=== PATIENT | female | born 1970 | race Caucasian/White ===

== ENCOUNTER → 2021-01-18 | Outpatient (REF) | payer MEDICARE, MEDICAID ==
[2021-01-18 12:58] LABS: ALBUMIN 2.4 GM/DL (3.2-5.2); ALT/SGPT 64 U/L (12-78); BLOOD UREA NITROGEN 11 MG/DL (7-18); CALCIUM LEVEL 8.8 MG/DL (8.5-10.1); CARBON DIOXIDE LEVEL 30 MEQ/L (21-32); CHLORIDE LEVEL 106 MEQ/L (98-107); CHOLESTEROL LEVEL 117 MG/DL (<200); CHOLESTEROL RISK RATIO 5.086 (<5); CREATININE FOR GFR 0.57 MG/DL (0.55-1.30); FREE T4 1.17 NG/DL (0.76-1.46); GLOMERULAR FILTRATION RATE > 60.0 (>51); GLUCOSE, FASTING 90 MG/DL (70-100); HDL CHOLESTEROL 23 MG/DL (>40); LDL CHOLESTEROL 79 MG/DL (<100); NON-HDL-C 94 MG/DL; POTASSIUM SERUM 4.1 MEQ/L (3.5-5.1); SODIUM LEVEL 138 MEQ/L (136-145); TOTAL 25(OH) VITAMIN D 15.3 NG/ML (30.0-100.0); TOTAL PROTEIN 8.1 GM/DL (6.4-8.2); TRIGLYCERIDES LEVEL 75 MG/DL (<150)
== END ==
LOC: M PLALAB 09:53
PROVIDERS: ATTEND Nurse Practitioner Family
DX: E66.01 Morbid (severe) obesity due to excess calories (principal); F41.1 Generalized anxiety disorder

== ENCOUNTER → 2021-02-12 | Outpatient (CLI) | payer MEDICARE, MEDICAID ==
--- NOTE | 2021-02-12 10:29 | REP ---
INDICATION: 479.89 LEFT ELEV. COMPARISON: Abdomen/pelvis CT dated 04/14/2006. TECHNIQUE: Multiple sonographic images of the abdominal right upper quadrant FINDINGS: There is a calculus in the gallbladder neck measuring 1.7 x 2.0 x 0.8 cm. The gallbladder wall is thickened measuring up to 7.4 mm. There is no pericholecystic fluid. On the comparison CT there was a 1.9 cm gallbladder calculus. There was no gallbladder wall thickening. There is limited visibility of the liver. No hepatic masses or cysts are identified. The visualized hepatic parenchyma is otherwise unremarkable. The pancreas is obscured by bowel gas. The right kidney is normal size measuring 11.3 x 5.1 x 4.4 cm. There is no right renal solid or cystic mass. There is no right renal calculus or hydronephrosis. There is no intrahepatic or extrahepatic biliary duct dilatation. The common biliary duct measures 3.4 mm in diameter. IMPRESSION: Gallbladder calculus as described. Gallbladder wall thickening. This could represent gallbladder wall edema or fibrosis. No pericholecystic fluid. No biliary duct dilatation. Extremely technically limited study because of patient body habitus, interfering bowel gas and patient difficulty tolerating the examination because of pain. <Electronically signed by Chris Block > 02/12/21 1029
== END ==
LOC: M WHC 07:59
PROVIDERS: ATTEND Nurse Practitioner Family
DX: K80.20 Calculus of gallbladder without cholecystitis without obstruction (principal); R79.89 Other specified abnormal findings of blood chemistry

== ENCOUNTER → 2021-02-12 | Outpatient (REF) | payer MEDICARE, MEDICAID ==
[2021-02-12 11:29] LABS: ALBUMIN 2.2 GM/DL (3.2-5.2); ALT/SGPT 74 U/L (12-78); BILIRUBIN,DIRECT 1.1 MG/DL (0.0-0.2); BILIRUBIN,TOTAL 1.7 MG/DL (0.2-1.0); FERRITIN 270 NG/ML (8-252); IRON (FE) 172 UG/DL (50-170); PERCENT SATURATION 87.3 % (13.2-45.0); TOTAL IRON BINDING CAPACITY 197 UG/DL (250-450); TOTAL PROTEIN 7.8 GM/DL (6.4-8.2)
[2021-02-12 11:31] LABS: HEPATITIS B SURFACE ANTIGEN NEGATIVE (NEGATIVE)
[2021-02-12 12:00] LABS: HEPATITIS C VIRUS ABY INDEX < 0.0 INDEX (<0.8)
== END ==
LOC: M SFHCPLAZ 08:38
PROVIDERS: ATTEND Nurse Practitioner Family
DX: R79.89 Other specified abnormal findings of blood chemistry (principal)

== ENCOUNTER → 2021-04-02 | Outpatient (CLI) | payer MEDICARE, MEDICAID ==
[~2021-04-02] MED LIST: ADV250INH; ALBU8.5H; BENA25CA4 PO; FAMO1TAB11; FLUT1BLS5; LEXA1TAB; MONT10TA10; VITA100054 PO; VITA50005; VITA500C19 PO
--- NOTE | 2021-04-02 15:08 | ECGEPIP ---
[facility] Test Date: 2021-04-02 Pat Name: SYDNEY TIDWELL Department: Room: - Gender: Female Employment Program Representative: RANJEET : 1970 Requested By: Jermaine Stephen Order Number: [id number] Reading MD: Danny Trotter Measurements Intervals [place] Rate: 78 P: 20 DC: 146 QRS: 44 QRSD: 66 T: 45 QT: 368 QTc: 419 Interpretive Statements Normal sinus rhythm, Within normal limits. No prior ECG available for comparison at the time of interpretation. Electronically Signed on 04-02-2021 15:08:09 EDT by Danny Trotter
== END ==
LOC: M EKG 10:22
PROVIDERS: ATTEND Surgery
DX: Z01.818 Encounter for other preprocedural examination (principal)

== ENCOUNTER → 2021-04-04 | Outpatient (CLI) | payer MEDICARE, MEDICAID | LOC: M LABSMTC 09:32 | PROVIDERS: ATTEND Anesthesiology | DX: Z01.818 Encounter for other preprocedural examination (principal); Z11.52 Encounter for screening for COVID-19 ==

== ENCOUNTER 2021-04-09 08:33 | Day surgery (SDC) | payer MEDICARE, MEDICAID ==
[~2021-04-09] VITALS: Ht 157.5 cm; Wt 76.5 kg
[~2021-04-09 08:33] MED LIST changes: +AMPICILLIN SOD/SULBACTAM SOD 3 GM in D5W MINI-BAG PLUS 100 ML IV ONE; +CelecoXIB (CeleBREX) 100 MG CAP PO ONE; +LR 1,000 ML IV ONE
[2021-04-09] MEDS ORDERED: MIDAZOLAM INJ 2MG/2ML VIAL (J2250 PER 1MG) As Ordered ONE (08:49)
[2021-04-09] MEDS ORDERED: ROCURONIUM BROMIDE 50 MG/5 ML VIAL As Ordered ONE ×2 (08:49→11:21)
[2021-04-09] MEDS ORDERED: ONDANSETRON 4MG/2ML VIAL As Ordered ONE (08:49)
[2021-04-09] MEDS ORDERED: LIDOCAINE 2% 100MG/5ML SDV (FOR ANES.) As Ordered ONE (08:49)
[2021-04-09] MEDS ORDERED: dexameTHASONE 4 MG/ML 1ML VIAL (J1100 PER 1MG) As Ordered ONE (08:49)
[2021-04-09] MEDS ORDERED: propofoL 200 MG/20 ML VIAL As Ordered ONE (08:49)
[2021-04-09] MEDS ORDERED: LACRILUBE (AKWA TEARS) OPHTH OINT 3.5 GM As Ordered ONE (08:49)
[2021-04-09] MEDS ORDERED: ACETAMINOPHEN 1000MG 100ML IV BTL (OFIRMEV) (J0131 PER 10MG) As Ordered ONE (08:50)
[2021-04-09] MEDS ORDERED: fentaNYL 100 MCG/2 ML INJECTION (J3010) As Ordered ONE ×2 (08:50→12:33)
[2021-04-09] MEDS ORDERED: BUPIVACAINE HCL 0.25% 30ML VIAL As Ordered ONE (10:19)
[2021-04-09] MEDS ORDERED: LIDOCAINE 1% SDV 30ML VIAL As Ordered ONE (10:19)
[2021-04-09] MEDS ORDERED: SUGAMMADEX SODIUM 500 MG/5 ML VIAL (BRIDION) As Ordered ONE (11:18)
[2021-04-09] MEDS ORDERED: KETAMINE HCL 200 MG/20 ML VIAL As Ordered ONE ×2 (11:28→12:55)
[2021-04-09] MEDS ORDERED: ACETAMINOPHEN TAB 650MG DOSE (2X325MG) PO PRN (13:40)
[2021-04-09] MEDS ORDERED: diphenhydrAMINE 25MG CAP PO SCH (13:40)
[2021-04-09] MEDS ORDERED: LR 1,000 ML IV SCH ×2 (13:40→14:05)
[2021-04-09] MEDS ORDERED: NORCO, ANEXSIA 5/325MG TABLET (HYDROcodone/ACETAMINOPHEN) PO PRN ×2 (13:40)
[2021-04-09] MEDS ORDERED: ONDANSETRON 4MG/2ML VIAL IV PRN ×2 (13:40→14:05)
[2021-04-09] MEDS ORDERED: ALBUTEROL 90 MCG/ACT 8GM HFA INHALER INH PRN (13:40)
[2021-04-09] MEDS ORDERED: fentaNYL 100 MCG/2 ML INJECTION (J3010) IV PRN (14:05)
[2021-04-09] MEDS: KETOROLAC 30 MG/ML 1ML VIAL IV PRN (14:05)
[2021-04-09] MEDS ORDERED: oxyCODONE 5MG TAB PO PRN (14:05)
[2021-04-09] MEDS: HYDROMORPHONE HCL 0.5 MG/ 0.5 ML SYRINGE (J1170 PER 1) IV PRN ×2 (14:13→14:20)
[2021-04-09 15:32] VITALS: BP 130/75
[2021-04-09 16:00] VITALS: BP 128/68
[2021-04-09 16:30] VITALS: BP 133/70
[2021-04-09 17:30] VITALS: BP 136/82
[2021-04-09 18:30] VITALS: BP 127/71
[2021-04-09] MEDS: ADVAIR HFA 115/21MCG INHALER INH SCH (19:32)
[2021-04-09 19:40] VITALS: BP 136/71
[2021-04-09] MEDS: SENOKOT S TAB PO SCH (20:45)
[2021-04-09] MEDS ORDERED: MONTELUKAST 10 MG TAB PO SCH (21:00)
[2021-04-09] MEDS ORDERED: FAMOTIDINE 20 MG TAB PO SCH (21:00)
[2021-04-09] MEDS ORDERED: ESCITALOPRAM OXALATE 10 MG TAB (LEXAPRO) PO SCH (21:00)
[2021-04-10] VITALS: BP 117/55
--- NOTE | 2021-04-10 03:25 | ROOPDOC ---
[facility] Report Of Operation Report of Operation DATE OF PROCEDURE: 04/09/21 PREPROCEDURE DIAGNOSES: Cholelithiasis. POSTPROCEDURE DIAGNOSES: Cholelithiasis, chronic cholecystitis, cirrhosis. PROCEDURE: Robotic Assisted Laparoscopic Cholecystectomy with ICG/Firefly for biliary tract identification. SURGEON: Celestine Monroy MD [employer]: ANESTHESIA: General Endotracheal Anesthesia. ESTIMATED BLOOD LOSS: Approximately 100 mL. COMPLICATIONS: cosntant oozing at the liver bed due to cirrhosis but controlled at the end of the procedure. REMARKS: 51 F complaining of intermittent right upper quadrant pain related to gallstones. PROCEDURE NOTE: polycystic, enlarged liver, which was stiff and nodular consistent with cirrhosis, tensely distended and chronically thickened gallbladder with a large stone at the neck.. DESCRIPTION OF PROCEDURE: .Patient was given a dose Unasyn 3 g IV preoperatively for prophylaxis. She was given a dose of ICG 2.5 mg IV with 10 mL NS flush 45 minutes prior to the procedure. She was brought to the operating room, laid supine on the table, compression boots placed for DVT prophylaxisusual sterile fashion. We paused for a surgical timeout using both pre-incision safety checklist to verify correct p atient, procedure site and additional clinical information prior to beginning the procedure. Entry to the abdomen done through a small incision at the left upper quadrant area. A Veress needle is inserted on a controlled fashion. CO2 insufflation started to pressure 15 mmHg. An 8 mm optical trocar was then placed under direct vision of laparoscope just to the right of the umbilicus. The insertion site was inspected for injury and none was found. The veress needle insertion is inspected and also no injury found. The veress needle was then removed. An initial laparoscopic examination was noted that she has enlarged and nodular liver. The gallbladder is enlarge protruding out of the edge of the liver and appears thickened. Patient was then positioned on a reverse trendelenburg position with her right side tilted up to further expose the gallbladder and gallbladder fossa and retract the bowels away from the area. Under direct vision The 3 working ports were placed transversely along the line of the firts optical port. Under laparoscopic guidance, the right lateral abdominal wall area at the transversus abdominis plane was infiltrated with local anesthesia. The da Staci Xi robotic tower was then maneuvered in place, the trochars were docked onto the robotic arms, the camera and instruments placed and positioned inside the abdomen. I then and scrubbed in to control of the robotic camera and instruments at the surgeon's console Her gallbladder is located/embedded in a more intrahepatic position. The gallbladder is tensely distended. It was difficult to elevate the fundus so I decided to go on a fundus down approach. The fundus of the gallbladder was retracted inferiorly and the peritoneum overlying the attachment of the posterior wall of the gallbladder was opened up. I then counter retracted the liver and proceeded going posteriorly staying close to the wall of the gallbladder. This was extended laterally and medially up to the mid gallbladder. At this point I have better purchase on the fundus of the gallbladder..The fundus of the gallbladder was grasped and the gallbladder was elevated superiorly exposing the neck of the gallbladder. Gallbladder wall is mildly and chronically thickened without any sign of any acute inflammation. The peritoneum overlying the area was opened up and dissected free both anteriorly and posteriorly to help with retraction of the gallbladder. The hepatocystic triangle was approached and dissected using a forced bipolar instrument and robotic hook cautery. The neck of the gallbladder and the course of the cystic duct as well as the bile duct was adequately visualized with aid of firefly and ICG. The cystic duct was identified coming off from the neck gallbladder this was circumferentially dissected. We continued posterior dissection proximally at the neck of the gallbladder until a critical view of safety was achieved whereby only the previously identified duct and artery coursing through the neck the gallbladder. I switched views with firefly to determine and visualized the course of the cystic duct, likewise the common bile duct. Photodocumentation was done of the critical view of safety. The cystic artery was then divided in between the previously placed [place] clips. After again checking her anatomy and verifying that the previously identified cystic duct with firefly view, this was also clipped 3 times and divided (2 hemoclips downstream and one Hemoclip upstream). The rest of the gallbladder was then dissected free of the gallbladder bed using Bovie cautery. The gallbladder was detached from the liver plate intact, and placed into an Endobag. I scrubbed back in. The gallbladder was extracted from the left upper quadrant port site with blunt enlargement of the trocar site using Nella forceps. The fascial opening at the left upper quadrant was closed with Jimi- Sienna device using an 0 Vicryl stitch. I left a 19 svitlana drain to the liver bed to monitor for bleeding.The abdomen was deflated all ports were removed. The umbilical fascial defect repaired with 0 Vicryl in a mattress fashion. Rest of the skin incisions closed with 4-0 Monocryl in subcuticular fashion. Dermabond was used to cover the port site incisions Patient was awakened, extubated and brought to recovery room stable. CELESTINE MONROY MD April 10, 2021 03:25
[2021-04-10] MEDS: KETOROLAC 30 MG/ML 1ML VIAL IV PRN ×2 (05:00→12:47)
[2021-04-10 06:57] LABS: BASO % 0.1 % (0.0-1.0); HEMATOCRIT 37.8 % (36.0-47.0); HEMOGLOBIN 12.4 g/dl (12.0-15.5); LYMPH # 0.5 10^3/uL (1.5-5.0); LYMPH % 6.2 % (24.0-44.0); MEAN CORPUSCULAR HGB CONC 32.8 g/dl (32.0-36.5); MEAN CORPUSCULAR VOLUME 103.6 fl (80.0-96.0); MONO # 0.4 10^3/uL (0.0-0.8); MONO % 4.3 % (2.0-8.0); NEUTROPHILS # 7.2 10^3/uL (1.5-8.5); NEUTROPHILS % 88.8 % (36.0-66.0); PLATELET COUNT, AUTOMATED 123 10^3/uL (150-450); RED BLOOD COUNT 3.65 10^6/uL (4.00-5.40); WHITE BLOOD COUNT 8.1 10^3/uL (4.0-10.0)
[2021-04-10] MEDS: ADVAIR HFA 115/21MCG INHALER INH SCH (07:20)
[2021-04-10 07:22] LABS: ALT/SGPT 88 U/L (12-78); BILIRUBIN,TOTAL 2.1 MG/DL (0.2-1.0); BLOOD UREA NITROGEN 14 MG/DL (7-18); CALCIUM LEVEL 7.6 MG/DL (8.5-10.1); CARBON DIOXIDE LEVEL 28 MEQ/L (21-32); CHLORIDE LEVEL 105 MEQ/L (98-107); CREATININE FOR GFR 0.85 MG/DL (0.55-1.30); GLOMERULAR FILTRATION RATE > 60.0 (>51); GLUCOSE, FASTING 194 MG/DL (70-100); POTASSIUM SERUM 4.1 MEQ/L (3.5-5.1); SODIUM LEVEL 138 MEQ/L (136-145); TOTAL PROTEIN 7.4 GM/DL (6.4-8.2)
[2021-04-10 08:00] VITALS: BP 132/69
[2021-04-10] MEDS: SENOKOT S TAB PO SCH (08:29)
[2021-04-10] MEDS ORDERED: PANTOPRAZOLE 40MG VIAL (C9113 PER 1) IV SCH (09:00)
[2021-04-10 12:00] VITALS: BP 156/86
[2021-04-10 14:40] VITALS: BP 122/73
--- NOTE | 2021-04-10 14:58 | IPNPDOC ---
Text Note Date of Service The patient was seen on 04/10/21. NOTE Patient is POD1 RA Lap Cholecystectomy for chronic cholecystitis. Intraoperat ively noted to have cirrhoisis, polycystic liver. I kept her overnight for monitoring. I left a drain for monitoring for bleeding. She looks to be doing well. Reports some heartburn type discomfort. VS stable looks comfortable, stable on her foot, ambulating independentl anicteric sclerae abdomen: obese, soft, nondistended, nontender. 4 port sites with glue, one of them have the drain, looks more like the leftover irrigation fluid, nonbilious not bloody labs reviewed baseline level ast/alt/bilirubin Plan ok to go home I discussed with her intraoperative findings of cirrhosis follow up in 2 weeks VS,Regina, I+O VSRegina, I+O Laboratory Tests 04/10/21 06:25 Vital Signs Date Time Temp Pulse Resp B/P (MAP) Pulse Ox O2 Delivery O2 Flow Rate FiO2 04/10/21 12:00 99.2 80 18 156/86 (109) 98 Room Air 04/09/21 13:47 10.0 l I&O- Last 24 Hours up to 6 AM 04/10/21 06:00 Intake Total 3235 ml Output Total 950 ml Balance 2285 ml CHARITO GILLETTE MD April 10, 2021 14:58
[2021-04-10 20:02] VITALS: BP 132/77
== END 2021-04-10 20:45 | disposition home or self-care (01) ==
LOC: M SDC 08:33 → M PED 15:18 → M SDC 04-10 20:45
PROVIDERS: ATTEND Surgery
DX: K80.10 Calculus of gallbladder with chronic cholecystitis without obstruction (principal); Q44.6 Cystic disease of liver; R94.5 Abnormal results of liver function studies; K74.60 Unspecified cirrhosis of liver; E66.01 Morbid (severe) obesity due to excess calories; Z68.30 Body mass index [BMI] 30.0-30.9, adult; F41.9 Anxiety disorder, unspecified; F32.9 Major depressive disorder, single episode, unspecified; K21.9 Gastro-esophageal reflux disease without esophagitis; M19.90 Unspecified osteoarthritis, unspecified site; J45.909 Unspecified asthma, uncomplicated; R06.83 Snoring; T88.4XXD Failed or difficult intubation, subsequent encounter; Z88.2 Allergy status to sulfonamides; Z88.1 Allergy status to other antibiotic agents; Z79.899 Other long term (current) drug therapy; Z79.51 Long term (current) use of inhaled steroids
CPT/HCPCS: 36415; 47563; 80053; 85025; 88304; 96374; 96375; 96376; C9113; J1100; J1170; J1885; J2250; J2405; J3010; S2900

== ENCOUNTER → 2021-05-03 | Outpatient (REF) | payer MEDICARE, MEDICAID ==
[~2021-05-03] MED LIST changes: -AMPICILLIN SOD/SULBACTAM SOD 3 GM in D5W MINI-BAG PLUS 100 ML IV ONE; -CelecoXIB (CeleBREX) 100 MG CAP PO ONE; -LR 1,000 ML IV ONE
[2021-05-03 13:06] LABS: ALBUMIN 2.3 GM/DL (3.2-5.2); ALT/SGPT 101 U/L (12-78); BILIRUBIN,TOTAL 2.3 MG/DL (0.2-1.0); BLOOD UREA NITROGEN 10 MG/DL (7-18); CALCIUM LEVEL 7.9 MG/DL (8.5-10.1); CARBON DIOXIDE LEVEL 30 MEQ/L (21-32); CHLORIDE LEVEL 107 MEQ/L (98-107); CREATININE FOR GFR 0.54 MG/DL (0.55-1.30); GLOMERULAR FILTRATION RATE > 60.0 (>51); GLUCOSE, FASTING 85 MG/DL (70-100); POTASSIUM SERUM 3.7 MEQ/L (3.5-5.1); SODIUM LEVEL 141 MEQ/L (136-145); TOTAL PROTEIN 7.4 GM/DL (6.4-8.2)
== END ==
LOC: M SFHCPLAZ 08:31
PROVIDERS: ATTEND Nurse Practitioner Family
DX: K74.60 Unspecified cirrhosis of liver (principal); R79.89 Other specified abnormal findings of blood chemistry; E55.9 Vitamin D deficiency, unspecified

== ENCOUNTER 2021-10-13 09:33 | Emergency (ER) | payer MEDICARE, MEDICAID ==
[~2021-10-13] VITALS: Ht 157.5 cm; Wt 124.9 kg
[~2021-10-13 09:33] MED LIST changes: +ERGO500029; -VITA50005
[2021-10-13] MEDS ORDERED: ONDANSETRON 4MG/2ML VIAL IV ONE (09:55)
--- NOTE | 2021-10-13 10:03 | REP ---
INDICATION: DYSPNEA/COUGH COMPARISON: 03/16/2007 TECHNIQUE: Portable AP view of the chest FINDINGS: Complete opacification of the right hemithorax consistent with effusion and presumed underlying parenchymal consolidation/atelectasis. Left lower lobe opacity suggests smaller effusion and left basilar atelectasis as well. No pneumothorax. Visualized portions of the mediastinum and cardiac silhouette are normal/stable. Skeletal structures appear intact. IMPRESSION: Findings likely representing large right pleural effusion, small left pleural effusion and lower lobe opacities. <Electronically signed by Danny Arguelles > 10/13/21 0959
[2021-10-13 10:08] LABS: ABG BASE EXCESS -1.5 (-2.0-2.0); ABG HCO3 21.2 MEQ/L (22.0-26.0); ABG O2 SATURATION 91.6 % (95.0-99.0); ABG PARTIAL PRESSURE CO2 30.1 mmHg (35.0-45.0); ABG STANDARD HCO3 23.1 MEQ/L (22.0-26.0); ABG TOTAL CO2 22.1 MEQ/L (22.0-29.0); ABG pH (ARTERIAL) 7.466 UNITS (7.350-7.450)
--- OUTSIDE RECORDS SUMMARY | 2021-10-13 10:13 | CCD ---
Author Author [facility] Organization [facility] Address Unknown Phone Unavailable Care Team Providers Care Mail Service Coordinator Name Role Phone Suki GILLETTE MD Unavailable Unavailable Suki GILLETTE MD Unavailable Unavailable Suki GILLETTE MD Unavailable Unavailable Suki GILLETTE MD Unavailable Unavailable Suki GILLETTE MD Unavailable Unavailable Suki IGLLETTE MD Unavailable Unavailable Suki GILLETTE MD Unavailable Unavailable Suki GILLETTE MD Unavailable Unavailable Suki GILLETTE MD Unavailable Unavailable Suki GILLETTE MD Unavailable Unavailable Suki GILLETTE MD Unavailable Unavailable Suki GILLETTE MD Unavailable Unavailable Suki GILLETTE MD Unavailable Unavailable Suki GILLETTE MD Unavailable Unavailable Suki GILLETTE MD Unavailable Unavailable Suki GILLETTE MD Unavailable Unavailable Suki GILLETTE MD Unavailable Unavailable Suki GILLETTE MD Unavailable Unavailable Suki GILLETTE MD Unavailable Unavailable Suki GILLETTE MD Unavailable Unavailable Suki GILLETTE MD Unavailable Unavailable Suki GILLETTE MD Unavailable Unavailable Suki GILLETTE MD Unavailable Unavailable Suki GILLETTE MD Unavailable Unavailable Suki GILLETTE MD Unavailable Unavailable Suki GILLETTE MD Unavailable Unavailable Suki GILLETTE MD Unavailable Unavailable Suki GILLETTE MD Unavailable Unavailable Suki GILLETTE MD Unavailable Unavailable Suki GILLETTE MD Unavailable Unavailable Suki GILLETTE MD Unavailable Unavailable Suki GILLETTE MD Unavailable Unavailable Suki GILLETTE MD Unavailable Unavailable Suki GILLETTE MD Unavailable Unavailable Suki GILLETTE MD Unavailable Unavailable Feola, T Haven PA Unavailable Unavailable Feola, T Haven PA Unavailable Unavailable Feola, T Haven PA Unavailable Unavailable Feola, T Haven PA Unavailable Unavailable Feola, T Haven PA Unavailable Unavailable Feola, T Haven PA Unavailable Unavailable Feola, T Haven PA Unavailable Unavailable Feola, T Haven PA Unavailable Unavailable Feola, T Haven PA Unavailable Unavailable Feola, T Haven PA Unavailable Unavailable Feola, T Haven PA Unavailable Unavailable Feola, T Haven PA Unavailable Unavailable Feola, T Haven PA Unavailable Unavailable Feola, T Haven PA Unavailable Unavailable Feola, T Haven PA Unavailable Unavailable Feola, T Haven PA Unavailable Unavailable Feola, T Haven PA Unavailable Unavailable Feola, T Haven PA Unavailable Unavailable Feola, T Haven PA Unavailable Unavailable Feola, T Haven PA Unavailable Unavailable Feola, T Haven PA Unavailable Unavailable Feola, T Haven PA Unavailable Unavailable Feola, T Haven PA Unavailable Unavailable Feola, T Haven PA Unavailable Unavailable Feola, T Haven PA Unavailable Unavailable Feola, T Haven PA Unavailable Unavailable Feola, T Haven PA Unavailable Unavailable Feola, T Haven PA Unavailable Unavailable Feola, T Haven PA Unavailable Unavailable Feola, T Haven PA Unavailable Unavailable Feola, T Haven PA Unavailable Unavailable Feola, T Haven PA Unavailable Unavailable Feola, T Haven PA Unavailable Unavailable Feola, T Haven PA Unavailable Unavailable Feola, T Haven PA Unavailable Unavailable Feola, T Haven PA Unavailable Unavailable Feola, T Haven PA Unavailable Unavailable Feola, T Haven PA Unavailable Unavailable Feola, T Haven PA Unavailable Unavailable Feola, T Haven PA Unavailable Unavailable Feola, T Haven PA Unavailable Unavailable Hossein CHAN MD Unavailable Unavailable Hossein CHAN MD Unavailable Unavailable Hossein CHAN MD Unavailable Unavailable Hossein CHAN MD Unavailable Unavailable Hossein CHAN MD Unavailable Unavailable Hossein CHAN MD Unavailable Unavailable Hossein CHAN MD Unavailable Unavailable Hossein CHAN MD Unavailable Unavailable Hossein CHAN MD Unavailable Unavailable Hossein CHAN MD Unavailable Unavailable DUSTIN, O DANAY MD Unavailable Unavailable DUSTIN, O DANAY MD Unavailable Unavailable DUSTIN, O DANAY MD Unavailable Unavailable DUSTIN, O DANAY MD Unavailable Unavailable DUSTIN, O DANAY MD Unavailable Unavailable DUSTIN, O DANAY MD Unavailable Unavailable DUSTIN, O DANAY MD Unavailable Unavailable DUSTIN, O DANAY MD Unavailable Unavailable DUSTIN, O DANAY MD Unavailable Unavailable DUSTIN, O DANAY MD Unavailable Unavailable DUSTIN, O DANAY MD Unavailable Unavailable DUSTIN, O DANAY MD Unavailable Unavailable DUSTIN, O DANAY MD Unavailable Unavailable DUSTIN, O DANAY MD Unavailable Unavailable DUSTIN, O DANAY MD Unavailable Unavailable DUSTIN, O DANAY MD Unavailable Unavailable DUSTIN, O DANAY MD Unavailable Unavailable DUSTIN, O DANAY MD Unavailable Unavailable DUSTIN, O DANAY MD Unavailable Unavailable DUSTIN, O DANAY MD Unavailable Unavailable DUSTIN, O DANAY MD Unavailable Unavailable DUSTIN, O DANAY MD Unavailable Unavailable DUSTIN, O DANAY MD Unavailable Unavailable DUSTIN, O DANAY MD Unavailable Unavailable DUSTIN, O DANAY MD Unavailable Unavailable DUSTIN, O DANAY MD Unavailable Unavailable DUSTIN, O DANAY MD Unavailable Unavailable DUSTIN, O DANAY MD Unavailable Unavailable DUSTIN, O DANAY MD Unavailable Unavailable DUSTIN, O DANAY MD Unavailable Unavailable DUSTIN, O DANAY MD Unavailable Unavailable DUSTIN, O DANAY MD Unavailable Unavailable DUSTIN, O DANAY MD Unavailable Unavailable DUSTIN, O DANAY MD Unavailable Unavailable DUSTIN, O DANAY MD Unavailable Unavailable Pendleton, L Elise RPA Unavailable Unavailable Pendleton, L Elise RPA Unavailable Unavailable Pendleton, L Elise RPA Unavailable Unavailable Pendleton, L Elise RPA Unavailable Unavailable Pendleton, L Elise RPA Unavailable Unavailable Pendleton, L Elise RPA Unavailable Unavailable Pendleton, L Elise RPA Unavailable Unavailable Pendleton, L Elise RPA Unavailable Unavailable Pendleton, L Elise RPA Unavailable Unavailable Pendleton, L Elise RPA Unavailable Unavailable Pendleton, L Elise RPA Unavailable Unavailable Pendleton, L Elise RPA Unavailable Unavailable Pendleton, L Elise RPA Unavailable Unavailable Pendleton, L Elise RPA Unavailable Unavailable Pendleton, L Elise RPA Unavailable Unavailable Pendleton, L Elise RPA Unavailable Unavailable Pendleton, L Elise RPA Unavailable Unavailable Pendleton, L Elise RPA Unavailable Unavailable Pendleton, L Elise RPA Unavailable Unavailable Pendleton, L Elise RPA Unavailable Unavailable Pendleton, L Elise RPA Unavailable Unavailable Pendleton, L Elise RPA Unavailable Unavailable Pendleton, L Elise RPA Unavailable Unavailable Pendleton, L Elise RPA Unavailable Unavailable Pendleton, L Elise RPA Unavailable Unavailable Pendleton, L Elise RPA Unavailable Unavailable Pendleton, L Elise RPA Unavailable Unavailable Pendleton, L Elise RPA Unavailable Unavailable Pendleton, L Elise RPA Unavailable Unavailable Pendleton, L Elise RPA Unavailable Unavailable Pendleton, L Elise RPA Unavailable Unavailable Pendleton, L Elise RPA Unavailable Unavailable Re-disclosure Warning The records that you are about to access may contain information from federally-assisted alcohol or drug abuse programs. If such information is present, then the following federally mandated warning applies: This information has been disclosed to you from records protected by federal confidentiality rules (42 CFR part 2). The federal rules prohibit you from making any further disclosure of this information unless further disclosure is expressly permitted by the written consent of the person to whom it pertains or as otherwise permitted by 42 CFR part 2. A general authorization for the release of medical or other information is NOT sufficient for this purpose. The Federal rules restrict any use of the information to criminally investigate or prosecute any alcohol or drug abuse patient.The records that you are about to access may contain highly sensitive health information, the redisclosure of which is protected by Article 27-F of the [facility] Public Health law. If you continue you may have access to information: Regarding HIV / AIDS; Provided by facilities licensed or operated by the [facility] Office of Mental Health; or Provided by the [facility] Office for People With Developmental Disabilities. If such information is present, then the following [facility] mandated warning applies: This information has been disclosed to you from confidential records which are protected by state law. State law prohibits you from making any further disclosure of this information without the specific written consent of the person to whom it pertains, or as otherwise permitted by law. Any unauthorized further disclosure in violation of state law may result in a fine or long-term sentence or both. A general authorization for the release of medical or other information is NOT sufficient authorization for further disc losure. Family History Family Member Name Family Member Gender Family Member Status Date o f Status Description Data Source(s) Unknown Male Problem MEDENT ([facility]) Encounters Encounter Providers Location Date Indications Data Source(s ) [place] [address] [facility] [facility] [address] 10/09/2021 12:00:00 AM EST eCW1 ([facility]) [place] [address] [facility] [facility] [address] 07/24/2021 12:00:00 AM EDT eCW1 ([facility]) [place] [address] [facility] [facility] [address] 05/03/2021 12:00:00 AM EDT eCW1 ([facility]) Outpatient [address] [facility] [address] 05/02/2021 12:00:00 AM EDT eCW1 ([facility]) Office Visit Attender: Elise Suggs/Reinaldo/Devendra/R eindl 04/23/2021 09:45:00 AM EDT MEDENT ([facility] ) Outpatient Attender: CHARITO Suggs/Reinaldo/Devendra/ Reindl 04/02/2021 09:15:00 AM EDT MED[facility] ([facility] ) [place] [address] [facility] [address] 02/27/2021 12:00:00 AM EDT eCW1 ([facility]) Outpatient Attender: DANAY Suggs/Reinaldo/Devendra/Re indl 02/25/2021 01:30:00 PM EDT MED[facility] ([facility] ) [place] [address] [facility] [address] 02/13/2021 12:00:00 AM EDT eCW1 ([facility]) Unknown [address] [facility] [facility] [address] 01/28/2021 12:00:00 AM EST eCW1 ([facility]) Outpatient [address] [facility] [address] 01/25/2021 12:00:00 AM EST eCW1 ([facility]) Outpatient Attender: Haven WEBSTER 021 02:57:42 PM EST - 01/07/2021 03:49:13 PM EST DocuTap ([facility] ) [place] [address] [facility] [facility] [address] 01/03/2021 12:00:00 AM EST eCW1 ([facility]) Immunizations Vaccine Date Status Description Data Source(s) COVID-19 VACCINE Moderna 03/05/2021 12:00:00 AM EDT completed [facility] Vaccine Series Complete: YESThis Data wa s Submitted to [facility]. COVID-19 VACCINE Moderna 02/05/2021 12:00:00 AM EDT completed [facility] Vaccine Series Complete: NOThis Data was Submitted to [facility]. influenza, recombinant, quadrIvalent,injectable, prese rvative free 01/25/2021 10:15:00 AM EST completed eCW1 ([facility]) influenza, recombinant, quadrIvalent,injectable, prese rvative free 01/25/2021 10:15:00 AM EST completed eCW1 ([facility]) influenza, recombinant, quadrIvalent,injectable, prese rvative free 01/25/2021 10:15:00 AM EST completed eCW1 ([facility]) influenza, recombinant, quadrIvalent,injectable, prese rvative free 01/25/2021 10:15:00 AM EST completed eCW1 ([facility]) influenza, recombinant, quadrIvalent,injectable, prese rvative free 01/25/2021 10:15:00 AM EST completed eCW1 ([facility]) influenza, recombinant, quadrIvalent,injectable, prese rvative free 01/25/2021 10:15:00 AM EST completed eCW1 ([facility]) influenza, recombinant, quadrIvalent,injectable, prese rvative free 01/25/2021 10:15:00 AM EST completed eCW1 ([facility]) influenza, recombinant, quadrIvalent,injectable, prese rvative free 01/25/2021 10:15:00 AM EST completed eCW1 ([facility]) Medications Medication Brand Name Start Date Product Form Dose Route Admi nistrative Instructions Pharmacy Instructions Status Indications Reaction Description Data Source(s) 2.5 mg /3 mL (0.083 %) 10/02/2021 12:00:00 AM EST solu tion for nebulization 75 INHALE THE CONTENTS OF ONE VIAL VIA NEBU LIZER FOUR TIMES A DAY NEEDED INHALE THE CONTENTS OF ONE VIAL VIA NEBULIZER FOUR TIMES A DAY NEEDED SOLD: 10/02/2021 [facility] 1,250 mcg (50,000 unit) 05/04/2021 12:00:00 AM EDT capsule 12 TAKE ONE CAPSULE BY MOUTH ONCE A WEEK WITH A MEAL TAKE ONE CAPSULE BY MOUTH ONCE A WEEK WITH A MEAL SOLD: 05/06/2021 [facility] Calcium + D3 600-800 MG-UNIT Calcium + D3 600-800 MG-UNIT 12:00:00 AM EDT 1.0 {tablet_with_a_meal} active eCW1 ([facility]) Calcium + D3 600-800 MG-UNIT Calcium + D3 600-800 MG-UNIT 12:00:00 AM EDT 1.0 {tablet_with_a_meal} active Calcium + D3 600-800 MG-UNIT eCW1 ([facility]) 90 mcg/actuation 05/03/2021 12:00:00 AM EDT HFA aerosol inha ler 8 INHALE 2 PUFFS EVERY 4-6 HOURS NEEDED INHALE 2 PUFFS EVERY 4-6 HOURS NEEDED SOLD: 10/02/2021 [facility] montelukast 10 MG Oral Tablet MONTELUKAST SODIUM 05/03/2021 12:0 0:00 AM EDT tablet 30 TAKE 1 TABLET BY MOUTH EVERY JEMIMA JHONNY TAKE 1 TABLET BY MOUTH EVERY EVENING SOLD: 09/02/2021 [facility] 90 mcg/actuation 05/03/2021 12:00:00 AM EDT HFA aerosol inha ler 8 INHALE 2 PUFFS EVERY 4-6 HOURS NEEDED INHALE 2 PUFFS EVERY 4-6 HOURS NEEDED SOLD: 05/03/2021 [facility] Calcium + D3 600-800 MG-UNIT Calcium + D3 600-800 MG-UNIT 12:00:00 AM EDT 1.0 {tablet_with_a_meal} active Calcium + D3 600-800 MG-UNIT eCW1 ([facility]) 90 mcg/actuation 05/03/2021 12:00:00 AM EDT HFA aerosol inha ler 8 INHALE 2 PUFFS EVERY 4-6 HOURS NEEDED INHALE 2 PUFFS EVERY 4-6 HOURS NEEDED SOLD: 07/18/2021 [facility] Calcium + D3 600-800 MG-UNIT Calcium + D3 600-800 MG-UNIT 12:00:00 AM EDT 1.0 {tablet_with_a_meal} active Calcium + D3 600-800 MG-UNIT eCW1 ([facility]) 250-50 mcg/dose 05/03/2021 12:00:00 AM EDT blister with saniya ce 60 INHALE 1 INHALATION TWO TIMES A DAY INHALE 1 INHALATION TWO TIMES A DAY SOLD: 10/02/2021 [facility] 250-50 mcg/dose 05/03/2021 12:00:00 AM EDT blister with saniya ce 60 INHALE 1 INHALATION TWO TIMES A DAY INHALE 1 INHALATION TWO TIMES A DAY SOLD: 05/03/2021 [facility] 90 mcg/actuation 05/03/2021 12:00:00 AM EDT HFA aerosol inha ler 8 INHALE 2 PUFFS EVERY 4-6 HOURS NEEDED INHALE 2 PUFFS EVERY 4-6 HOURS NEEDED SOLD: 09/02/2021 [facility] montelukast 10 MG Oral Tablet MONTELUKAST SODIUM 05/03/2021 12:0 0:00 AM EDT tablet 30 TAKE 1 TABLET BY MOUTH EVERY JEMIMA JHONNY TAKE 1 TABLET BY MOUTH EVERY EVENING SOLD: 05/03/2021 [facility] montelukast 10 MG Oral Tablet MONTELUKAST SODIUM 05/03/2021 12:0 0:00 AM EDT tablet 30 TAKE 1 TABLET BY MOUTH EVERY JEMIMA JHONNY TAKE 1 TABLET BY MOUTH EVERY EVENING SOLD: 10/02/2021 [facility] 250-50 mcg/dose 05/03/2021 12:00:00 AM EDT blister with saniya ce 60 INHALE 1 INHALATION TWO TIMES A DAY INHALE 1 INHALATION TWO TIMES A DAY SOLD: 09/02/2021 [facility] 250-50 mcg/dose 05/03/2021 12:00:00 AM EDT blister with saniya ce 60 INHALE 1 INHALATION TWO TIMES A DAY INHALE 1 INHALATION TWO TIMES A DAY SOLD: 07/18/2021 [facility] Acetaminophen 325 MG / Hydrocodone Bitartrate 5 MG Ora l Tablet Hydrocodone-Acetaminophen 04/09/2021 12:00:00 AM EDT ORAL completed MEDENT ([facility] ) Acetaminophen 325 MG / Hydrocodone Bitartrate 5 MG Ora l Tablet 5-325 mg HYDROCODONE/ACETAMINOPHEN 04/09/2021 12:00:00 AM EDT tablet 14 TAKE ONE TABLET BY MOUTH EVERY 6 HOURS NEEDED FOR PAIN MAXIMUM DAILY DOSE = 4 TABLETS TAKE ONE TABLET BY MOUTH EVERY 6 HOURS NEEDED FOR PAIN MAXIMUM DAILY DOSE = 4 TABLETS SOLD: 04/10/2021 [facility] 1,250 mcg (50,000 unit) 01/29/2021 12:00:00 AM EST capsule 12 TAKE ONE CAPSULE BY MOUTH ONCE WEEKLY WITH A MEAL TAKE ONE CAPSULE BY MOUTH ONCE WEEKLY WITH A MEAL SOLD: 01/29/2021 [facility] Physical Therapy evaluate and treat UNK 01/25/2021 12:00:00 AM EST suspended Physical Therapy evaluate and tr eat eCW1 ([facility]) Physical Therapy evaluate and treat UNK 01/25/2021 12:00:00 AM EST active Physical Therapy evaluate and tr eat eCW1 ([facility]) Physical Therapy evaluate and treat UNK 01/25/2021 12:00:00 AM EST active Physical Therapy evaluate and tr eat eCW1 ([facility]) Physical Therapy evaluate and treat UNK 01/25/2021 12:00:00 AM EST suspended eCW1 ([facility]) Ergocalciferol 71030 UNT Oral Capsule Ergocalciferol 1 .25 MG (84096 UT) Ergocalciferol 1.25 MG (83780 UT) 01/25/2021 12:00:00 AM EST 1.0 {c apsule} active Ergocalciferol 1.25 MG (5 0000 UT) eCW1 ([facility]) Physical Therapy evaluate and treat UNK 01/25/2021 12:00:00 AM EST suspended Physical Therapy evaluate and tr eat eCW1 ([facility]) Physical Therapy evaluate and treat UNK 01/25/2021 12:00:00 AM EST suspended Physical Therapy evaluate and tr eat eCW1 ([facility]) Ergocalciferol 70060 UNT Oral Capsule Ergocalciferol 1 .25 MG (85481 UT) Ergocalciferol 1.25 MG (60488 UT) 01/25/2021 12:00:00 AM EST 1.0 {c apsule} active Ergocalciferol 1.25 MG (5 0000 UT) eCW1 ([facility]) Physical Therapy evaluate and treat UNK 01/25/2021 12:00:00 AM EST suspended Physical Therapy evaluate and tr eat eCW1 ([facility]) Ergocalciferol 69509 UNT Oral Capsule Ergocalciferol 1 .25 MG (93615 UT) Ergocalciferol 1.25 MG (46931 UT) 01/25/2021 12:00:00 AM EST 1.0 {c apsule} active Ergocalciferol 1.25 MG (5 0000 UT) eCW1 ([facility]) Physical Therapy evaluate and treat UNK 01/25/2021 12:00:00 AM EST active Physical Therapy evaluate and tr eat eCW1 ([facility]) 500 mg 01/19/2021 12:00:00 AM EST capsule 30 TAKE ONE CAPSULE BY MOUTH THREE TIMES A DAY FOR 10 DAYS TAKE ONE CAPSULE BY MOUTH THREE TIMES A DAY FOR 10 DAY S SOLD: 01/19/2021 [facility] Famotidine 20 MG Oral Tablet Famotidine 20 MG 01/03/2021 12:00:00 A M EST 1.0 {tablet_at_bedtime_as_needed} active Fa motidine 20 MG eCW1 ([facility]) Escitalopram 10 MG Oral Tablet [Lexapro] Lexapro 10 MG Lexap ro 10 MG 01/03/2021 12:00:00 AM EST 1.0 {tablet} active Le xapro 10 MG eCW1 ([facility]) Famotidine 20 MG Oral Tablet Famotidine 20 MG 01/03/2021 12:00:00 A M EST 1.0 {tablet_at_bedtime_as_needed} active eCW1 ([facility]) 90 mcg/actuation 01/03/2021 12:00:00 AM EST HFA aerosol inha ler 8 INHALE TWO PUFFS BY MOUTH EVERY 4 TO 6 HOURS NEEDED INHALE TWO PUFFS BY MOUTH EVERY 4 TO 6 HOURS NEEDED SOLD: 01/03/2021 [facility] Famotidine 20 MG Oral Tablet Famotidine 20 MG 01/03/2021 12:00:00 A M EST 1.0 {tablet_at_bedtime_as_needed} active Fa motidine 20 MG eCW1 ([facility]) 20 mg 01/03/2021 12:00:00 AM EST tablet 30 TAKE ONE TABLET BY MOUTH AT BEDTIME NEEDED TAKE ONE TABLET BY MOUTH AT BEDTIME NEEDED SOLD: [facility] montelukast 10 MG Oral Tablet MONTELUKAST SODIUM 01/03/2021 12:0 0:00 AM EST tablet 30 TAKE ONE TABLET BY MOUTH EVERY E VENING TAKE ONE TABLET BY MOUTH EVERY EVENING SOLD: 03/18/2021 [facility] 20 mg 01/03/2021 12:00:00 AM EST tablet 30 TAKE ONE TABLET BY MOUTH AT BEDTIME NEEDED TAKE ONE TABLET BY MOUTH AT BEDTIME NEEDED SOLD: [facility] Famotidine 20 MG Oral Tablet FAMOTIDINE 01/03/2021 12:00:00 AM EST tab let 30 TAKE ONE TABLET BY MOUTH AT BEDTIME NEEDED TAKE ONE TABLET BY MOUTH AT BEDTIME NEEDED SOLD: 01/03/2021 [facility] montelukast 10 MG Oral Tablet MONTELUKAST SODIUM 01/03/2021 12:0 0:00 AM EST tablet 30 TAKE ONE TABLET BY MOUTH EVERY E VENING TAKE ONE TABLET BY MOUTH EVERY EVENING SOLD: 01/28/2021 [facility] Famotidine 20 MG Oral Tablet Famotidine 20 MG 01/03/2021 12:00:00 A M EST 1.0 {tablet_at_bedtime_as_needed} active Fa motidine 20 MG eCW1 ([facility]) Famotidine 20 MG Oral Tablet Famotidine 20 MG 01/03/2021 12:00:00 A M EST 1.0 {tablet_at_bedtime_as_needed} active Fa motidine 20 MG eCW1 ([facility]) Famotidine 20 MG Oral Tablet Famotidine 20 MG 01/03/2021 12:00:00 A M EST 1.0 {tablet_at_bedtime_as_needed} active Fa motidine 20 MG eCW1 ([facility]) Escitalopram 10 MG Oral Tablet [Lexapro] Lexapro 10 MG Lexap ro 10 MG 01/03/2021 12:00:00 AM EST 1.0 {tablet} active Le xapro 10 MG eCW1 ([facility]) montelukast 10 MG Oral Tablet MONTELUKAST SODIUM 01/03/2021 12:0 0:00 AM EST tablet 30 TAKE ONE TABLET BY MOUTH EVERY E VENING TAKE ONE TABLET BY MOUTH EVERY EVENING SOLD: 01/03/2021 [facility] 250-50 mcg/dose 01/03/2021 12:00:00 AM EST blister with saniya ce 60 INHALE ONE PUFF BY MOUTH TWICE A DAY INHALE ONE PUFF BY MOUTH TWICE A DAY SOLD: 01/03/2021 [facility] Escitalopram 10 MG Oral Tablet [Lexapro] Lexapro 10 MG Lexap ro 10 MG 01/03/2021 12:00:00 AM EST 1.0 {tablet} active Le xapro 10 MG eCW1 ([facility]) 250-50 mcg/dose 01/03/2021 12:00:00 AM EST blister with saniya ce 60 INHALE ONE PUFF BY MOUTH TWICE A DAY INHALE ONE PUFF BY MOUTH TWICE A DAY SOLD: 03/18/2021 [facility] Escitalopram 10 MG Oral Tablet ESCITALOPRAM OXALATE 01/03/2021 1 2:00:00 AM EST tablet 30 TAKE ONE TABLET BY MOUTH EVERY D AY TAKE ONE TABLET BY MOUTH EVERY DAY SOLD: 01/03/2021 [facility] 90 mcg/actuation 01/03/2021 12:00:00 AM EST HFA aerosol inha ler 8 INHALE TWO PUFFS BY MOUTH EVERY 4 TO 6 HOURS NEEDED INHALE TWO PUFFS BY MOUTH EVERY 4 TO 6 HOURS NEEDED SOLD: 01/28/2021 [facility] 250-50 mcg/dose 01/03/2021 12:00:00 AM EST blister with saniya ce 60 INHALE ONE PUFF BY MOUTH TWICE A DAY INHALE ONE PUFF BY MOUTH TWICE A DAY SOLD: 01/28/2021 [facility] Escitalopram 10 MG Oral Tablet ESCITALOPRAM OXALATE 01/03/2021 1 2:00:00 AM EST tablet 30 TAKE ONE TABLET BY MOUTH EVERY D AY TAKE ONE TABLET BY MOUTH EVERY DAY SOLD: 01/28/2021 [facility] Escitalopram 10 MG Oral Tablet [Lexapro] Lexapro 10 MG Lexap ro 10 MG 01/03/2021 12:00:00 AM EST 1.0 {tablet} active Le xapro 10 MG eCW1 ([facility]) Famotidine 20 MG Oral Tablet Famotidine 20 MG 01/03/2021 12:00:00 A M EST 1.0 {tablet_at_bedtime_as_needed} active Fa motidine 20 MG eCW1 ([facility]) Famotidine 20 MG Oral Tablet Famotidine 20 MG 01/03/2021 12:00:00 A M EST 1.0 {tablet_at_bedtime_as_needed} active Fa motidine 20 MG eCW1 ([facility]) Escitalopram 10 MG Oral Tablet [Lexapro] Lexapro 10 MG Lexap ro 10 MG 01/03/2021 12:00:00 AM EST 1.0 {tablet} active Le xapro 10 MG eCW1 ([facility]) Famotidine 20 MG Oral Tablet Famotidine 20 MG 01/03/2021 12:00:00 A M EST 1.0 {tablet_at_bedtime_as_needed} active Fa motidine 20 MG eCW1 ([facility]) Insurance Providers Payer name Policy type / Coverage type Policy ID Covered democrat ID Covered democrat's relationship to king Policy [place] Plan Information [place] [employer] Workers Compensation [id number] Self 1 [id number] [employer] ([place] Workers Compensation [id number] [facility] [id number] Self [id number] Medicare [place] Med[place]ap Part B [id number] Self 1 [id number] Medicaid Medicaid [id number] Self [id number] [facility] Commercial Insurance [employer] [id number] Self [id number] [place] Medicare Part B [id number] Self [id number] [facility] MEDICAID [id number] [place] [id number] 18 [id number] [facility] MEDICAID [id number] EMEDNY [id number] SP [id number] [facility] [id number] SP [id number] [facility] [id number] SP [id number] Problems, Conditions, and Diagnoses Code Display Name Description Problem Type Effective Dates Data Source(s) R79.89 [id number] LFT elevation Problem 05/03/2021 12:00:00 AM EDT eCW1 ([facility]) K74.60 [id number] Cirrhosis of liver w ithout ascites, unspecified hepatic cirrhosis type Problem 05/02/2021 12:00:00 AM EDT eCW1 ([facility]) K80.10 39979208 Calculus of gallblad silvia with cholecystitis without biliary obstruction, unspecified cholecystitis acuity Problem 02/14/20 12:00:00 AM EDT eCW1 ([facility]) E78.6 [id number] Low HDL (under 40) Problem 01/25/2021 12:00: 00 AM EST eCW1 ([facility]) E55.9 63806366 Vitamin D deficiency Problem 01/25/2021 12:0 0:00 AM EST eCW1 ([facility]) E66.01 626700041 Morbid obesity Problem 01/03/2021 12:00:00 A M EST eCW1 ([facility]) J30.89 Allergic rhinitis Non-seasonal allergic rhinitis , unspecified trigger Problem 01/03/2021 12:00:00 AM EST eCW1 ([facility]) Z68.43 428737653 BMI 50.0-59.9, adult Problem 01/03/2021 12:0 0:00 AM EST eCW1 ([facility]) J45.40 861950473 Moderate persistent asthma without compli cation Problem 01/03/2021 12:00:00 AM EST eCW1 ([facility]) K21.9 [id number] Gastroesophageal ref lux disease, unspecified whether esophagitis present Problem 01/03/2021 12:00:00 AM EST eCW1 ([facility]) Surgeries/Procedures Procedure Description Date Indications Data Source(s) Laparoscopy Cholecystectomy With Cholangiography 04/09 12:00:00 AM EDT MEDENT ([facility], ) Results ID Date Data Source VITAMIN D 25-HYDROXY 05/03/2021 12:00:00 AM EDT eCW1 ([facility]) Name Value Range Interpretation Code Description Data Brittney rce(s) Supporting Document(s) 14.0 30.0-100.0 TOTAL 25(OH) VITAMIN D eC W1 ([facility]) ID Date Data Source Comprehensive Metabolic Profile (CMP) 05/03/2021 12:00:00 AM EDT eCW1 ([facility]) Name Value Range Interpretation Code Description Data Brittney rce(s) Supporting Document(s) 85 70-100 GLUCOSE, FASTING eCW1 ([facility]) 10 7-18 BLOOD UREA NITROGEN eCW1 ([facility]) > 60.0 >51 GLOMERULAR FILTRATION RATE eCW 1 ([facility]) 0.54 0.55-1.30 CREATININE FOR GFR eCW1 ([facility]) 3.7 3.5-5.1 POTASSIUM SERUM eCW1 ([facility]) 107 98-107 CHLORIDE LEVEL eCW1 ([facility]) 141 136-145 SODIUM LEVEL eCW1 ([facility]) 30 21-32 CARBON DIOXIDE LEVEL eCW1 ([facility]) 133 7-37 AST/SGOT eCW1 ([facility]) 101 12-78 ALT/SGPT eCW1 ([facility]) 7.9 8.5-10.1 CALCIUM LEVEL eCW1 ([facility]) 7.4 6.4-8.2 TOTAL PROTEIN eCW1 ([facility]) 156 45-117 ALKALINE PHOSPHATASE eCW1 ([facility]) 2.3 0.2-1.0 BILIRUBIN,TOTAL eCW1 ([facility]) 2.3 3.2-5.2 ALBUMIN eCW1 ([facility]) 0.5 1.2-2.2 ALBUMIN/GLOBULIN RATIO eCW1 ([facility]) ID Date Data Source ALPHA FETOPROTEIN TUMOR QUANT 05/03/2021 12:00:00 AM EDT eCW 1 ([facility]) Name Value Range Interpretation Code Description Data Brittney rce(s) Supporting Document(s) 4.6 <8.1 ALPHA FETOPROTEIN TUMOR Q UANT eCW1 ([facility]) ID Date Data Source [id number] 04/10/2021 06:25:00 AM EDT MEDENT (Health system, ) Name Value Range Interpretation Code Description Data Brittney rce(s) Supporting Document(s) Blood Urea Nitrogen 14 mg/dL 7-18 Normal (applies to non-nume cassidy results) [facility], ) Glucose, Fasting 194 mg/dL 70-100 Above high normal [facility] Sodium Level 138 meq/L 136-145 Normal (applies to non-numeric res ults) [facility] ([facility], ) Glomerular Filtration Rate Laboratory test result Normal (applies to non- numeric results) [facility] ([facility]) <content>Units are mL/min/1.73 m2</content>
<content></content>
<content>Chronic Kidney Disease Staging per NKF:</content>
<content></content>
<content>Stage I & II GFR >=60 Normal to Mildly Decreased</content>
<content>Stage III GFR 30- 59 Moderately Decreased</content>
<content>Stage IV GFR 15-29 Severely Decreased</content>
<content>Stage V GFR <15 Very Little GFR Left</content>
<content>ESRD GFR <15 on SHAFTING CLEANER</content>
<content></content> Creatinine For GFR 0.85 mg/dL 0.55-1.30 Normal (applies to non -numeric results) MEDENT ([facility]) Chloride Level 105 meq/L 98-107 Normal (applies to non-numeric r esults) MEDENT ([facility]) Potassium Serum 4.1 meq/L 3.5-5.1 Normal (applies to non-numeric results) MEDENT ([facility]) Calcium Level 7.6 mg/dL 8.5-10.1 Below low normal MEDEN T ([facility]) Anion Gap 5 meq/L 8-16 Below low normal [facility] ( [facility]) Carbon Dioxide Level 28 meq/L 21-32 Normal (applies to non-num jennifer results) MEDENT ([facility]) Alkaline Phosphatase 144 U/L 45-117 Above high normal MEDENT ([facility]) Alt/SGPT 88 U/L 12-78 Above high normal MEDENT ([facility]) Ast/Sgot 139 U/L 7-37 Above high normal MEDENT ([facility]) Albumin 2.0 GM/DL 3.2-5.2 Below low normal MEDENT ( [facility]) Total Protein 7.4 GM/DL 6.4-8.2 Normal (applies to non-numeric re sults) MEDENT ([facility]) Bilirubin,Total 2.1 mg/dL 0.2-1.0 Above high normal ME DENT ([facility]) Albumin/Globulin Ratio 0.4 1.2-2.2 Below low normal MEDENT ([facility]) ID Date Data Source [id number] 04/10/2021 06:25:00 AM EDT MEDENT ([facility]) Name Value Range Interpretation Code Description Data Brittney rce(s) Supporting Document(s) Red Blood Count 3.65 10 4.00-5.40 Below low normal MED ENT ([facility]) White Blood Count 8.1 10 4.0-10.0 Normal (applies to non-numeri c results) MEDENT ([facility], ) Hemoglobin 12.4 g/dL 12.0-15.5 Normal (applies to non-numeric resul ts) [facility] ([facility], ) Mean Corpuscular Hemoglobin 34.0 pg 27.0-33.0 Above high normal MEDENT ([facility]) Hematocrit 37.8 % 36.0-47.0 Normal (applies to non-numeric resul ts) MED[facility] ([facility], ) Mean Corpuscular Volume 103.6 fl 80.0-96.0 Above high normal [facility] ([facility]) Mean Corpuscular HGB Conc 32.8 g/dL 32.0-36.5 Normal (applies to non-numeric results) [facility] ([facility]) Red Cell Distribution Width 13.0 % 11.5-14.5 Norm al (applies to non-numeric results) [facility] ([facility], ) Platelet Count, Automated 123 10 150-450 Below low normal MEDENT ([facility]) Neutrophils % 88.8 % 36.0-66.0 Above high normal MEDE NT ([facility]) Lymph % 6.2 % 24.0-44.0 Below low normal MEDENT ( [facility]) Eos % 0.0 % 0.0-3.0 Normal (applies to non-numeric resul ts) MEDENT ([facility], ) [place] % 4.3 % 2.0-8.0 Normal (applies to non-numeric resul ts) MEDENT ([facility], ) Baso % 0.1 % 0.0-1.0 Normal (applies to non-numeric resul ts) MEDENT ([facility]) Immature Granulocyte % 0.6 % 0-3.0 Normal (applies to non-n umeric results) [facility]) Nucleated Red Blood Cell % 0.0 % 0-0 Normal (applies to n on-numeric results) MEDENT ([facility], ) Neutrophils # 7.2 10 1.5-8.5 Normal (applies to non-numeric re sults) MEDENT ([facility]) [place] # 0.4 10 0.0-0.8 Normal (applies to non-numeric resul ts) MEDENT ([facility]) Lymph # 0.5 10 1.5-5.0 Below low normal MEDENT ( [facility]) Baso # 0.0 10 0.0-0.2 Normal (applies to non-numeric resul ts) MEDENT ([facility]) Eos # 0.0 10 0.0-0.5 Normal (applies to non-numeric resul ts) MEDENT ([facility]) ID Date Data Source [id number] 04/09/2021 01:09:00 PM EDT MEDENT ([facility]) Name Value Range Interpretation Code Description Data Brittney rce(s) Supporting Document(s) Surgical pathology study Laboratory test result [facility]) FINAL DIAGNOSIS Gallbladder, cholecystectomy: Cholelithiasis. Chronic cholecystitis. 04/11/2021 - 09 CLINICAL DIAGNOSIS Cholelithiasis, elevated LFTs 04/10/2021 - 1342 GROSS DIAGNOSIS Received in formalin labeled "gallbladder and contents" and consists of a gallbladder 6 x 3 x 3 cm. The specimen is opened to reveal gallstones measuring from 0.4-1.5 cm. The mucosa is grossly unremarkable. No polypoid or mass lesion is identified. Batt Packer section is submitted in one. -OA 04/10/2021 - 1341 Signed CAMERON LÓPEZ MD 04/11/2021 0913 ID Date Data Source [id number] 04/04/2021 09:30:00 AM EDT [facility] Name Value Range Interpretation Code Description Data Brittney rce(s) Supporting Document(s) SARS-CoV-2 (COVID-19) RNA [Presence] in Respiratory specimen by ALEJANDRO with probe detection Not Detected [facility] This lab was ordered by [facility] and reported by [facility]. ID Date Data Source [id number] 01/07/2021 12:00:00 AM EST [facility] Name Value Range Interpretation Code Description Data Brittney rce(s) Supporting Document(s) Carestart Rapid COVID Antigen Test Negative [facility] This lab was reported by [facility]. ID Date Data Source [id number] 01/07/2021 12:00:00 AM EST [facility] Name Value Range Interpretation Code Description Data Brittney rce(s) Supporting Document(s) SARS coronavirus 2 RNA [Presence] in Res piratory specimen by ALEJANDRO with probe detection NEGATIVE [facility] This lab was ordered by [facility] and reported by [facility]. Procedure Social History No Information Vital Signs ID Date Data Source UNK Name Value Range Interpretation Code Description Data Source(s) Heart rate 80 /min 80 /min eCW1 ([facility]) Body weight 258 [lb_av] 258 [lb_av] eCW1 ([facility]) Body height 62 [in_i] 62 [in_i] eCW1 ([facility]) Respiratory rate 20 /min 20 /min eCW1 ([facility]) Body mass index (BMI) [Ratio] 47.18 kg/m2 47.18 kg/m2 eCW1 ([facility]) Body temperature 97 [degF] 97 [degF] eCW1 ([facility]) Systolic blood pressure 140 mm[Hg] 140 mm[Hg] e CW1 ([facility]) Diastolic blood pressure 80 mm[Hg] 80 mm[Hg] eCW1 ([facility]) Systolic blood pressure 107 mm[Hg] 107 mm[Hg] M EDENT ([facility], ) Diastolic blood pressure 73 mm[Hg] 73 mm[Hg] MEDENT ([facility], ) Body weight 118.163 kg 118.163 kg [facility] Body surface area Derived from formula 2.14 m2 2.14 m2 [facility], ) Heart rate 82 /min 82 /min [facility] ([facility], ) Body height 62 [in_i] 62 [in_i] MEDENT (Health system, ) 5'2" Body weight 260.50 [lb_av] 260.50 [lb_av] MEDEN T ([facility]) Body mass index (BMI) [Ratio] 47.6 kg/m2 47.6 k g/m2 MEDENT ([facility]) Aubrey body weight 110 [lb_av] 110 [lb_av] MEDEN T ([facility]) Systolic blood pressure 151 mm[Hg] 151 mm[Hg] M EDENT ([facility]) Diastolic blood pressure 86 mm[Hg] 86 mm[Hg] MEDENT ([facility]) Body surface area Derived from formula 2.15 m2 2.15 m2 [facility] ([facility]) Body height 62 [in_i] 62 [in_i] [facility] ([facility]) 5'2" Body weight 263.12 [lb_av] 263.12 [lb_av] MEDEN T ([facility]) Body mass index (BMI) [Ratio] 48.1 kg/m2 48.1 k g/m2 [facility] ([facility]) Aubrey body weight 110 [lb_av] 110 [lb_av] MEDEN T ([facility]) Body weight 119.353 kg 119.353 kg [facility] ([facility]) Body weight 267 [lb_av] 267 [lb_av] eCW1 ([facility]) Body height 62 [in_i] 62 [in_i] eCW1 ([facility]) Body mass index (BMI) [Ratio] 48.83 kg/m2 48.83 kg/m2 eCW1 ([facility]) Heart rate 66 /min 66 /min eCW1 ([facility]) Respiratory rate 20 /min 20 /min eCW1 ([facility]) Body temperature 97.5 [degF] 97.5 [degF] eCW1 ( [facility]) Systolic blood pressure 130 mm[Hg] 130 mm[Hg] e CW1 ([facility]) Diastolic blood pressure 80 mm[Hg] 80 mm[Hg] eCW1 ([facility]) Body height 62 [in_i] 62 [in_i] MEDENT ([facility]) 5'2" Aubrey body weight 110 [lb_av] 110 [lb_av] MEDEN T ([facility]) Systolic blood pressure 168 mm[Hg] 168 mm[Hg] EDENT ([facility]) Diastolic blood pressure 92 mm[Hg] 92 mm[Hg] [facility] Body weight 267.50 [lb_av] 267.50 [lb_av] MEDEN T ([facility]) Body mass index (BMI) [Ratio] 48.9 kg/m2 48.9 k g/m2 [facility] ([facility]) Body weight 121.338 kg 121.338 kg [facility] ([facility]) Body surface area Derived from formula 2.16 m2 2.16 m2 [facility] ([facility]) Body weight 265 [lb_av] 265 [lb_av] eCW1 ([facility]) Body height 62 [in_i] 62 [in_i] eCW1 ([facility]) Body mass index (BMI) [Ratio] 48.46 kg/m2 48.46 kg/m2 W1 ([facility]) Heart rate 90 /min 90 /min eCW1 ([facility]) Respiratory rate 20 /min 20 /min eCW1 ([facility]) Body temperature 97.3 [degF] 97.3 [degF] eCW1 ( [facility]) Systolic blood pressure 130 mm[Hg] 130 mm[Hg] e CW1 ([facility]) Diastolic blood pressure 80 mm[Hg] 80 mm[Hg] eCW1 ([facility]) Body weight 275 [lb_av] 275 [lb_av] eCW1 ([facility]) Body height 62 [in_i] 62 [in_i] eCW1 ([facility]) Body mass index (BMI) [Ratio] 50.29 kg/m2 50.29 kg/m2 W1 ([facility]) Heart rate 90 /min 90 /min eCW1 ([facility]) Respiratory rate 20 /min 20 /min eCW1 ([facility]) Body temperature 97.3 [degF] 97.3 [degF] eCW1 ( [facility]) Systolic blood pressure 130 mm[Hg] 130 mm[Hg] e CW1 ([facility]) Diastolic blood pressure 80 mm[Hg] 80 mm[Hg] eCW1 ([facility]) Patient Treatment Plan of Care Planned Activity Planned Date Details Description Data Source (s) Calcium + D3 600-800 MG-UNIT 05/03/2021 12:00:00 AM EDT eCW1 ([facility]) Calcium + D3 600-800 MG-UNIT 05/03/2021 12:00:00 AM EDT eCW1 ([facility]) Calcium + D3 600-800 MG-UNIT 05/03/2021 12:00:00 AM EDT eCW1 ([facility]) Calcium + D3 600-800 MG-UNIT 05/03/2021 12:00:00 AM EDT eCW1 ([facility]) Physical Therapy evaluate and treat 01/25/2021 12:00:00 AM EST eCW1 ([facility]) Ergocalciferol 40736 UNT Oral Capsule 01/25/2021 12:00:00 AM EST eCW1 ([facility]) Physical Therapy evaluate and treat 01/25/2021 12:00:00 AM EST eCW1 ([facility]) Ergocalciferol 59286 UNT Oral Capsule 01/25/2021 12:00:00 AM EST eCW1 ([facility]) Physical Therapy evaluate and treat 01/25/2021 12:00:00 AM EST eCW1 ([facility]) Ergocalciferol 21656 UNT Oral Capsule 01/25/2021 12:00:00 AM EST eCW1 ([facility]) Famotidine 20 MG Oral Tablet 01/03/2021 12:00:00 AM EST eCW1 ([facility]) Famotidine 20 MG Oral Tablet 01/03/2021 12:00:00 AM EST eCW1 ([facility]) Famotidine 20 MG Oral Tablet 01/03/2021 12:00:00 AM EST eCW1 ([facility]) Famotidine 20 MG Oral Tablet 01/03/2021 12:00:00 AM EST eCW1 ([facility]) Escitalopram 10 MG Oral Tablet [Lexapro] 01/03/2021 12:00:00 AM EST eCW1 ([facility]) Escitalopram 10 MG Oral Tablet [Lexapro] 01/03/2021 12:00:00 AM EST eCW1 ([facility]) Escitalopram 10 MG Oral Tablet [Lexapro] 01/03/2021 12:00:00 AM EST eCW1 ([facility]) Famotidine 20 MG Oral Tablet 01/03/2021 12:00:00 AM EST eCW1 ([facility]) Escitalopram 10 MG Oral Tablet [Lexapro] 01/03/2021 12:00:00 AM EST eCW1 ([facility])
--- OUTSIDE RECORDS SUMMARY | 2021-10-13 10:13 | CCD ---
Author Author [facility] Organization [facility] Address Unknown Phone Unavailable Care Team Providers Care Peanut Sorter Name Role Phone Amarilis aPtten Unavailable PROBLEMS ALLERGIES ENCOUNTERS from 1970 to 2021-10-10 IMMUNIZATIONS SOCIAL HISTORY No smoking Hx information available REASON FOR REFERRAL No Information VITAL SIGNS MEDICATIONS PROCEDURES No Information RESULTS No Results REASON FOR VISIT MEDICAL (GENERAL) HISTORY Goals Section Health Concerns MEDICAL EQUIPMENT No Information MENTAL STATUS FUNCTIONAL STATUS ASSESSMENTS No Information PLAN OF TREATMENT Insurance Providers
--- OUTSIDE RECORDS SUMMARY | 2021-10-13 10:13 | CCD ---
Author Author [facility] Organization [facility] Address Unknown Phone Unavailable Care Team Providers Care Utilization Review Specialist Name Role Phone Sigrid Oconnell Unavailable PROBLEMS Type Condition ICD9-CM Code GOM64-HO Code Onset Dates Condition S tatus W/U Status Risk SNOMED Code Notes Problem Depressive disorder, not elsewhere classified F32. 9 Active confirmed 96025681 Problem Generalized anxiety disorder F41.1 Active confirme d 17006645 Problem Gastroesophageal reflux dise ase, unspecified whether esophagitis present K21.9 Active confirmed 680565642 Problem Moderate persistent asthma without complication J4 5.40 Active confirmed 510840596 Problem BMI 50.0-59.9, adult Z68.43 Active confirmed 910756113 Problem Cirrhosis of liver without ascites, unsp ecified hepatic cirrhosis type K74.60 Active confirmed 40889088 Problem Non-seasonal allergic rhinitis, unspecified trigger J30.89 Active confirmed 43195099 Problem LFT elevation R79.89 Active confirmed 643171 004 Problem Obesity E66.9 Active confirmed 108458996 Problem Morbid obesity E66.01 Active confirmed 17235 6002 Problem Vitamin D deficiency E55.9 Active confirmed 51423131 Problem Low HDL (under 40) E78.6 Active confirmed 3 07629170 Problem Calculus of gallbladder with cholecystitis without biliary obstruction, unspecified cholecystitis acuity K80.10 Active confirmed 13909593 ALLERGIES Allergen (clinical drug ingredient) Drug/Non Drug Allergy do cumented on EMR Reaction Allergy Type Onset Date Status sulfamethoxazole / trimethoprim Bactrim([facility] Code:[address]-26) Hives Drug Allergy Active Acetaminophen Hives Drug Allergy Active ENCOUNTERS from 1970 to 2021-07-24 Encounter Location Date Provider Diagnosis [facility] [phone] [place] [address] Jul, Sigrid Oconnell IMMUNIZATIONS Vaccine Route Administration Date Status Influenza 18 yrs & older [place] Unknown January 25, 2021 Administered SOCIAL HISTORY Sex Assigned At : Social History Observation Description Sex Assigned At Unknown Audit Question Answer Notes Total Score: 0 Interpretation: Alcohol Education Language: Question Answer Notes Languages spoken: Azeri Drug and Alcohol Question Answer Notes Total Score: 0 Interpretation: No problems reported Alcohol Screening: Question Answer Notes Did you have a drink containing alcohol in the past year? No Points 0 Interpretation Negative REASON FOR REFERRAL No Information VITAL SIGNS No information MEDICATIONS Medication SIG (Take, Route, Frequency, Duration) Notes Start Da te End Date Status Ergocalciferol 1.25 MG (24844 UT) 1 capsule Orally onc e a week with meal for 90 days Active Calcium + D3 600-800 MG-UNIT 1 tablet with a meal Oral ly Once a day for 90 day(s) Apr, Active Physical Therapy evaluate and treat as directed R liana w pain/strain 1-3X/week for 30 days Jan, Not-Taking Albuterol Sulfate HFA 108 (90 Base) MCG/ACT 2 puffs In halation every 4-6 hours as needed for 30 Days Active Benadryl 25 MG 1 capsule Orally every 8 hours MDD:3 for 30 days Not-Taking Famotidine 20 MG 1 tablet at bedtime as needed Orally Once a day as needed Dec, Active Advair Diskus 250-50 MCG/DOSE 1 Inhalation twice a day for 30 Days Active Singulair 10 mg 1 tablet in the evening Oral ly Once a day in the evening for 30 Days Active PROCEDURES No Information RESULTS No Results REASON FOR VISIT no show informational letter MEDICAL (GENERAL) HISTORY Type Description Date Medical History asthma Medical History BARRIE Medical History Depression Medical History arthopathy Medical History allergic rhinitis Surgical History Tubal ligation Surgical History knee arthroscopy Surgical History partial hysterectomy 2003 Surgical History Robotic assited lap cholecystectomy 03/23 07/13 Goals Section No Information Health Concerns No Information MEDICAL EQUIPMENT No Information MENTAL STATUS No Information FUNCTIONAL STATUS No Information ASSESSMENTS No Information PLAN OF TREATMENT Medication Medication Name Sig Start Date Stop Date Ergocalciferol 1.25 MG (12403 UT) 1 capsule Orally onc e a week with meal for 90 days Famotidine 20 MG 1 tablet at bedtime as needed Orally Onc e a day as needed Dec, Calcium + D3 600-800 MG-UNIT 1 tablet with a meal Oral ly Once a day for 90 day(s) Apr, Advair Diskus 250-50 MCG/DOSE 1 Inhalation twice a day for 30 Da ys Albuterol Sulfate HFA 108 (90 Base) MCG/ACT 2 puffs In halation every 4-6 hours as needed for 30 Days Singulair 10 mg 1 tablet in the evening Oral ly Once a day in the evening for 30 Days Insurance Providers Payer Name Payer Address Payer Phone Insured Name Patient Relati onship to Insured Coverage Start Date Coverage End Date MEDICAID [employer] [address] [facility] [id number] [address] [facility] [address] [facility] [phone] [place]
[2021-10-13 10:51] LABS: CPK CREATINE PHOSPHOKINASE 128 U/L (26-192); MB/CK RELATIVE INDEX 3.12 (< OR =4); TROPONIN I < 0.02 NG/ML (< 0.10)
[2021-10-13] MEDS ORDERED: METOCLOPRAMIDE INJ 10MG/2ML VIAL (J2765 PER 1) IV ONE (11:00)
[2021-10-13 11:05] LABS: ALBUMIN 1.3 GM/DL (3.2-5.2); CREATININE FOR GFR 2.21 MG/DL (0.55-1.30); GLOMERULAR FILTRATION RATE 24.9 (>51); POTASSIUM SERUM 4.9 MEQ/L (3.5-5.1); THYROID STIMULATING HORMONE 3.07 uIU/ML (0.358-3.740); TOTAL PROTEIN 8.5 GM/DL (6.4-8.2)
--- NOTE | 2021-10-13 11:18 | REP ---
INDICATION: cirrhsis COMPARISON: None. TECHNIQUE: Axial noncontrast images from the skull base to the vertex with coronal reformations. This CT examination was performed using the following dose reduction techniques: Automated exposure control, adjustment of mA and/or kv according to the patient's size, and use of iterative reconstruction technique. FINDINGS: The ventricles are symmetric and within normal limits. Subtle low-density areas within the cerebellum/posterior fossa require correlation to exclude the possibility of acute infarction. Remainder of the pinedo-white differentiation is maintained and normal. No acute intracranial hemorrhage. No mass or mass effect. No extra-axial fluid collection. Calvarium is intact. Paranasal sinuses and mastoid air cells are relatively normal although fluid level in the right sphenoid sinus is identified and nonspecific. IMPRESSION: Cannot exclude element of infarction involving the cerebellum and correlation is required. No acute intracranial hemorrhage. <Electronically signed by Danny Arguelles > 10/13/21 [id number]
--- NOTE | 2021-10-13 11:23 | REP ---
INDICATION: cirrhsis COMPARISON: 11/12/2006 TECHNIQUE: Axial noncontrast images from the thoracic inlet to the upper abdomen with coronal and sagittal reformations. This CT examination was performed using the following dose reduction techniques: Automated exposure control, adjustment of mA and/or kv according to the patient's size, and use of iterative reconstruction technique. FINDINGS: There is large right pleural effusion completely opacifying the right hemithorax with underlying collapse to the right upper lobe, right middle lobe, and right lower lobe. Contralateral mediastinal shift is noted due to increased volume in the right hemithorax and small patchy opacities are identified at the left apex and left base. Tracheobronchial tree is patent. Limited evaluation of the mediastinum demonstrates normal thoracic aorta and heart/pericardium. No obvious significant pericardial effusion identified. Musculoskeletal structures are intact. IMPRESSION: Large right pleural effusion completely opacifying and distending the right hemithorax with complete collapse to the right lung and contralateral mediastinal shift causing decreased volume to the aerated left lung. Small areas of airspace disease at the left apex and left base are also identified. <Electronically signed by Danny Arguelles > 10/13/21 [id number]
--- NOTE | 2021-10-13 11:27 | REP ---
INDICATION: cirrhsis COMPARISON: 04/14/2006 TECHNIQUE: Axial noncontrast images from the lung bases to the pubic symphysis with coronal and sagittal reformations. This CT examination was performed using the following dose reduction techniques: Automated exposure control, adjustment of mA and/or kv according to the patient's size, and use of iterative reconstruction technique. FINDINGS: Cirrhotic shrunken liver is appreciated with moderate amount of ascites consistent with the given history of cirrhosis. Spleen, pancreas, bilateral adrenal glands and kidneys are relatively normal. Findings suggest prior cholecystectomy versus shrunken liver poorly evaluated. The enteric system demonstrates dilated air-filled loops of small and large bowel raising the possibility of underlying ileus and less likely actual obstruction. Findings are compatible with cirrhosis. There is no free air to suggest perforation. Pelvis demonstrates collapsed bladder and evidence for prior hysterectomy. No retroperitoneal adenopathy. Abdominal aorta without aneurysm. Skeletal structures demonstrate degenerative changes. IMPRESSION: 1. Findings described above consistent with cirrhosis including shrunken liver and moderate diffuse ascites. 2. Air-filled dilated loops of large and primarily small bowel often seen with cirrhosis and ascites. Findings less likely represent obstruction. No free air to suggest perforation. <Electronically signed by Danny Arguelles > 10/13/21 112
[2021-10-13 11:42] LABS: VENOUS BASE EXCESS 0.6 (-2.0-2.0); VENOUS HCO3 25.3 MEQ/L (23.0-27.0); VENOUS O2 SATURATION 81.5 % (60.0-80.0); VENOUS PARTIAL PRESSURE CO2 40.9 mmHg (38.0-50.0); VENOUS PARTIAL PRESSURE O2 47.4 mmHg (30.0-50.0); VENOUS PH 7.409 UNITS (7.330-7.430); VENOUS STANDARD HCO3 24.6 MEQ/L; VENOUS TOTAL CO2 26.5 MEQ/L (24.0-28.0)
[2021-10-13 11:46] LABS: BASO # 0.1 10^3/uL (0.0-0.2); BASO % 0.6 % (0.0-1.0); EOS # 0.1 10^3/uL (0.0-0.5); EOS % 0.8 % (0.0-3.0); HEMATOCRIT 38.5 % (36.0-47.0); HEMOGLOBIN 13.1 g/dl (12.0-15.5); MEAN CORPUSCULAR HEMOGLOBIN 36.9 pg (27.0-33.0); MEAN CORPUSCULAR VOLUME 108.5 fl (80.0-96.0); MONO # 0.9 10^3/uL (0.0-0.8); NEUTROPHILS # 8.6 10^3/uL (1.5-8.5); NEUTROPHILS % 79.4 % (36.0-66.0); PLATELET COUNT, AUTOMATED 172 10^3/uL (150-450); RED BLOOD COUNT 3.55 10^6/uL (4.00-5.40); WHITE BLOOD COUNT 10.9 10^3/uL (4.0-10.0)
[2021-10-13 11:56] LABS: INR 2.4; PROTHROMBIN TIME 26.5 SECONDS (12.7-14.5)
[2021-10-13 13:15] VITALS: BP 116/55
--- NOTE | 2021-10-13 20:36 | ECGEPIP ---
[facility] - ED Test Date: 2021-10-13 Pat Name: SYDNEY TIDWELL Department: Room: - Gender: Female Sap Data Architect: MANJINDER : 1970 Requested By: Laureen Demarco Order Number: [id number] Reading MD: Laureen Demarco Measurements Intervals [place] Rate: 88 P: 89 TX: 142 QRS: 97 QRSD: 76 T: 26 QT: 418 QTc: 505 Interpretive Statements Normal sinus rhythm Rightward axis NSTTW abnormalities Low voltage QRS Cannot rule out Anterior infarct , age undetermined Prolonged QT, clinical correlation, increased rate 04/02/21 Electronically Signed on 10-13-2021 20:35:53 EST by Laureen Demarco
== END 2021-10-13 13:22 | disposition short-term general hospital (02) ==
LOC: EDBD 09:33 → M ED 09:33
DX: I63.9 Cerebral infarction, unspecified (principal); K76.7 Hepatorenal syndrome; J90 Pleural effusion, not elsewhere classified; J94.2 Hemothorax; J98.19 Other pulmonary collapse; R93.89 Abnormal findings on diagnostic imaging of other specified body structures; R18.8 Other ascites; K74.60 Unspecified cirrhosis of liver; R06.02 Shortness of breath; J45.909 Unspecified asthma, uncomplicated; R46.0 Very low level of personal hygiene; F32.9 Major depressive disorder, single episode, unspecified; F41.1 Generalized anxiety disorder; Z79.899 Other long term (current) drug therapy; Z88.2 Allergy status to sulfonamides
CPT/HCPCS: 36600; 70450; 71045; 71250; 74176; 80048; 80076; 82140; 82550; 82553; 82803; 83605; 83690; 83880; 84443; 84484; 85025; 85610; 87040; 87798; 93005; 93041; 96374; 99285; J2765